=== PATIENT | female | born 1960 | race Caucasian/White ===

== ENCOUNTER 2016-09-19 06:27 | Day surgery (SDC) | payer BC ==
[~2016-09-19 06:27] MED LIST: AMITRIPTYLINE H50 M1 PO; BENTYL10 M1 PO; BOOST HIGH PRO237 ML PO; CYMBALTA30 M1 PO; FOLIC ACID1 M1 PO; METHOTREXATE; METOPROLOL SUCC25 M1 PO; NEURONTIN100 M1 PO; NORPRAMIN PO; PANTOPRAZOLE SO40 M3 PO; PREDNISONE10 M1 PO; VITAMIN B1; ZOFRAN4 M2 PO
[2016-09-19 13:10] LABS: BASO % 0.1 % (0-2); EOS % 0.4 % (0-7); HCT-HEMATOCRIT 31.1 % (34.0-49.0); HGB-HEMOGLOBIN 10.7 gm/dl (12.0-15.5); IMMATURE GRANULOCYTES ABSOLUTE 0.03 tho/cmm (0-0.03); IMMATURE GRANULOCYTES PERCENT 0.4 % (0-0.3); LYMPH % 12.1 % (20-45); LYMPH ABSOLUTE COUNT 0.9 tho/cmm (0.8-4.5); MCH (MEAN CORPUSCULAR HGB) 34.5 pg (28.0-32.0); MCHC MEAN CORPUSCULAR HGB CONC 34.4 % (32.0-36.0); MCV (MEAN CELL VOLUME) 100.3 fl (82.0-96.0); MEAN PLATELET VOLUME 8.8 cmc (9.4-12.4); MONO % 3.8 % (0-12); MONOCYTE ABSOLUTE COUNT 0.3 tho/cmm (0.0-1.2); NEUTROPHIL ABSOLUTE COUNT 6.1 tho/cmm (1.6-8.0); NEUTROPHIL-AUTOMATED 6.1 tho/cmm (1.6-8.0); NEUTROPHILS % 83.2 % (40-80); PLATELET COUNT 224 tho/cmm (150-450); RED CELL DISTRIBUTION WIDTH 12.3 % (12.4-16.4); WHITE BLOOD COUNT 7.3 tho/cmm (4.0-10.0)
== END 2016-09-19 15:45 ==
LOC: SHSC 06:27 → ORW 08:25 → SHSC 09:22 → ORW 12:09 → PACU 13:44 → SHSC 14:10
PROVIDERS: Anesthesiology
PROC: 0KBR0ZX Excision of Left Upper Leg Muscle, Open Approach, Diagnostic (ICD-10-PCS; principal; 2016-09-19)
PROC: 0K9R0ZZ Drainage of Left Upper Leg Muscle, Open Approach (ICD-10-PCS; 2016-09-19)
DX: M62.552 Muscle wasting and atrophy, not elsewhere classified, left thigh (principal); M96.840 Postprocedural hematoma of a musculoskeletal structure following a musculoskeletal system procedure; I10 Essential (primary) hypertension; F41.9 Anxiety disorder, unspecified; F32.9 Major depressive disorder, single episode, unspecified; K21.9 Gastro-esophageal reflux disease without esophagitis; L40.50 Arthropathic psoriasis, unspecified; Z88.2 Allergy status to sulfonamides; Z88.1 Allergy status to other antibiotic agents; Z88.8 Allergy status to other drugs, medicaments and biological substances; Z79.899 Other long term (current) drug therapy; Z98.890 Other specified postprocedural states
CPT/HCPCS: J0690; J1720